=== PATIENT | male | born 1960 | race Hispanic/Latino ===

== ENCOUNTER 2017-11-21 18:53 | Inpatient (IN) | payer OTHER, SELFPAY ==
[2017-11-21 19:28] LABS: #Basophils 0.1 thou/uL (0.0-0.2); #Eosinphils 0.1 thou/uL (0.0-0.7); #Lymphocytes 1.7 thou/uL (1.20-3.40); #Monocytes 0.6 thou/uL (0.11-0.59); #Neutrophils 4.6 thou/uL (1.40-6.50); %Basophils 1.2 % (0.0-1.0); %Eosinophils 1.6 % (0.0-10.0); %Lymphocytes 24.2 % (21.0-51.0); %Monocytes 7.9 % (0.0-10.0); %Neutrophils 65.2 % (42.0-75.0); Hemoglobin 16.5 g/dL (14.0-18.0); Mean Corpuscular Hemoglobin 30.5 pg (27.0-31.0); Mean Corpuscular Volume 92.4 fl (80.0-94.0); Mean Platelet Volume 7.7 fL (7.4-10.4); Platelet Count 230 thou/uL (130-400); RBC Distribution Width 13.4 % (11.5-14.5)
[2017-11-21 19:53] LABS: CKMB 1.7 ng/mL (0-6.6); Troponin I 0.114 ng/mL (< 0.028)
[2017-11-21 19:55] LABS: ALT (SGPT) 22 U/L (8-55); AST (SGOT) 18 U/L (5-34); Alkaline Phosphatase 135 U/L (40-150); Anion Gap 13 mmol/L (10-20); BUN (Urea Nitrogen) 17 mg/dL (8.4-25.7); Bilirubin, Total 0.5 mg/dL (0.2-1.2); Calc. Creatinine Clearance 0 mL/min (70-130); Calcium 9.2 mg/dL (7.8-10.44); Carbon Dioxide 24 mmol/L (22-29); Chloride 99 mmol/L (98-107); Estimated GFR-MDRD 54; Globulin 4.2 g/dL (2.4-3.5); Glucose 395 mg/dL (70-105); Potassium 5.1 mmol/L (3.5-5.1); Protein, Total 8.2 g/dL (6.0-8.3); Sodium 131 mmol/L (136-145)
[2017-11-21] MEDS ORDERED: Digoxin 0.5 MG/2 ML AMP ONE (20:08)
[2017-11-21 20:12] LABS: INR-International Normal Ratio 1.6; PTT 34.2 SEC (22.9-36.1); Prothrombin Time 19.6 SEC (12.0-14.7)
[2017-11-21 20:13] LABS: CK (CPK) 67 U/L (30-200); Lipase 45 U/L (8-78)
[2017-11-21 20:14] LABS: D-Dimer Test Less than 0.27 *mcg/mL (0.27-0.43)
[2017-11-21] MEDS ORDERED: Magnesium 2 GM/NS 0.9% 100 ML 2 GM in Premix Bag 1 BAG IVPB ONE (20:15)
--- NOTE | 2017-11-21 20:19 | RAD ---
PORTABLE CHEST: 11/21/17 HISTORY: Atrial fibrillation. COMPARISON: 09/19/16 study. Heart size is markedly enlarged. The lungs are clear of any infiltrative process and there are no sig ns of failure. IMPRESSION: Cardiomegaly. POS: LUKAS
[2017-11-21] MEDS ORDERED: Diltiazem 125 MG in Sodium Chloride 0.9% 100 ML IVPB SCH (21:15)
[2017-11-21 22:59] LABS: Troponin I 0.111 ng/mL (< 0.028)
[2017-11-21] MEDS ORDERED: Dextrose 5% in Water 1,000 ML IV PRN (23:29)
[2017-11-21] MEDS ORDERED: Ondansetron ODT 4 MG TAB PO PRN (23:29)
[2017-11-21] MEDS ORDERED: Dextrose 50% Abboject 50 ML SYRINGE SLOW IVP PRN (23:29)
[2017-11-21] MEDS ORDERED: Famotidine 20 MG TAB PO PRN (23:29)
[2017-11-21] MEDS ORDERED: Acetaminophen 325 MG TAB PO PRN (23:29)
[2017-11-21 23:30] LABS: Bilirubin Negative (Negative); Blood, Urine Negative (Negative); Clarity CLEAR (Clear); Glucose, Urine (Dipstick) >=1000 mg/dL (Negative); Leukocyte Negative (Negative); Nitrite Negative (Negative); Protein, Urine (Dipstick) Negative (Neg-Trace); Specific Gravity, Urine 1.035 (1.002-1.036); Urobilinogen 0.2 mg/dL (0.2-1.0)
[2017-11-21 23:51] VITALS: BMI 34.5
[2017-11-21 23:51] LABS: Magnesium 2.4 mg/dL (1.6-2.6); Phosphorus 3.3 mg/dL (2.3-4.7)
[2017-11-22] MEDS: Sodium Chloride 0.9% 1,000 ML IV SCH ×2 (00:02→06:47)
[2017-11-22 02:01] LABS: Troponin I 0.121 ng/mL (< 0.028)
--- NOTE | 2017-11-22 05:05 | HP-2 ---
CODE STATUS: Full. PRIMARY CARE PHYSICIAN: [facility] ATTENDING: Dr. Deonna Devi RESIDENT: Dr. Matt Sumner CHIEF COMPLAINT: Shortness of breath. HISTORY OF PRESENT ILLNESS: This is a 57-year-old male who presents with a 1-day history of shortnes s of breath. He went to [facility] for a routine followup appointment and was found to be in atr ial fibrillation. At that time, he was sent to the ED for further evaluation. The patient denies an y chest pain, any nausea, vomiting, diarrhea, lightheadedness or any falls during this time. The pat ient states he overall feels very well. He has been trying to lose a little bit of weight for his di abetes, but he has only been successful in losing roughly 5 pounds. He states that he has not missed any medications during this time and he is compliant with all of his medical treatment. No other co mplaints stated at this time. In the ER, he was given a diltiazem drip at 5 mg, digoxin 0.5 mg, mag sulfate and aspirin 324 mg and started on normal saline at 75 mL per hour. PAST MEDICAL HISTORY: CHF, diabetes mellitus type 2, hyperlipidemia, hypertension, COPD, atrial fibr illation, hyperthyroidism. PAST SURGICAL HISTORY: He had a cardiac catheterization in 2005. ALLERGIES: No known drug allergies. MEDICATIONS: 1. Warfarin 5 mg. 2. Diltiazem extended release 240 mg. 3. Methimazole 5 mg b.i.d. 4. Lasix 40 mg. 5. Lisinopril 10 mg. 6. Pantoprazole 40 mg. 7. Metformin 500mg. 8. Simvastatin 20 mg. FAMILY HISTORY: Noncontributory. SOCIAL HISTORY: The patient does have a [id number] smoking history, but he quit 20 years ago. No alcohol or drug use. REVIEW OF SYSTEMS: GENERAL: Denies fevers, chills, weight changes, night sweats. EYES: Denies vision changes or eye pain. ENT: Denies nasal congestion, rhinorrhea, or sore throat. RESPIRATORY: Denies cough or congestion. He does admit to shortness of breath. CARDIOVASCULAR: De nies chest pain. He does admit to palpitations. GASTROINTESTINAL: Denies nausea, vomiting, diarrhea, constipation. GENITOURINARY: Denies incontinence, dysuria. SKIN: Denies rashes or lesions. MUSCULOSKELETAL: Denies pain, tenderness, stiffness, swelling, arthritis in any joints. NEUROLOGIC: Denies weakness, numbness, syncope or seizure. PSYCHIATRIC: Denies anxiety or depression. PHYSICAL EXAMINATION: VITAL SIGNS: Blood pressure 109/80, pulse 113, respirations 19, temperature max 98.1, pulse oximetry 96% on room air, current weight is 91 kilos. GENERAL: He is alert and oriented x4. Appropriately interactive. EYES: PERRLA. Conjunctivae within normal limits. ENT: Tympanic membranes pearly ortez without bulging or erythema. Nasal mucosa and oropharynx within normal limits. The patient does wear upper and lower ridge dentures. NECK: Supple, no lymphadenopathy, no thyromegaly. CARDIOVASCULAR: Irregularly irregular rate and rhythm. No murmurs, no gallops. His radial and peda l pulses were present bilaterally. RESPIRATORY: Normal effort, no retractions. Lungs are clear to auscultation bilaterally. SKIN: Warm and dry. ABDOMEN: Soft, nontender to palpation. Bowel sounds present x4. He does have a small umbilical her desiree present that was reducible. No pain present with hernia. EXTREMITIES: No clubbing, cyanosis or edema. MUSCULOSKELETAL: Structure, tone, muscle strength and range of motion within normal limits. NEUROLOGIC: No focal neurologic deficits. Sensation within normal limits. Cranial nerves II-XII gr ossly intact. GCS was 15. PSYCHIATRIC: Psych was appropriate. LABORATORY DATA: White blood cell count 7.0, platelet count 230. Hemoglobin 16.5, hematocrit 49.9, MCV was 92.4, % neutrophils 65.2. CK was 67, CK-MB 1.7, troponin I 0.114. Sodium 131, potassium 5.1 , chloride 99, bicarbonate 24, BUN 17, creatinine 1.36, glucose 395, calcium 9.2, total protein is 8. 2, albumin 4.0, total bilirubin 0.5, AST was 18, ALT 22, alkaline phosphatase 135. D-dimer is less t rodriguez 0.27. PTT was 34.2. INR is 1.6, PT was 19.6. Lipase was 45. BNP was 340.6. TSH is 1.7. EKG showed atrial fibrillation with RVR. The chest x-ray showed cardiomegaly. ASSESSMENT AND PLAN: A 57-year-old male. 1. Atrial fibrillation with rapid ventricular response. He will be put on a diltiazem drip with tel e monitoring. We will continue his warfarin and will check an INR daily. We are going to check a ma gnesium, phosphorus and get a T3 and T4 as his TSH was normal. If his heart rate cannot be controlle d and his rhythm persists, we will consider a Cardiology consult at that time. 2. Hyperglycemia, diabetes mellitus type 2. We will give him insulin and Accu-Cheks. 3. Acute kidney injury. We will give him gentle IV fluids. Recheck with a BMP. 4. Elevated BNP. We will get a repeat an echo. His last echo was in 2013 that showed an ejection f raction of 35-40%. We will give Lasix as needed. 5. Elevated troponins were going to trend those. We will repeat an EKG if he becomes symptomatic. 6. Subtherapeutic INR. We will get daily checks and increase his dosage as appropriate. 7. Hyperthyroidism. We will continue his methimazole. We will check a T3-T4 to see if this is the etiology of his atrial fibrillation. 8. Hypertension. Continue his home meds. 9. Hyperlipidemia. Continue his home medications. 10. Congestive heart failure. We will continue his home medications and we will also discuss lambert paz his regimen as he is not on a beta brigid at this time. DISPOSITION/LENGTH OF HOSPITAL STAY: Telemetry, 2. Symptomatic medications will be provided. History and physical exam as well as management has been discussed with Dr. Devi.
[2017-11-22 05:11] LABS: INR-International Normal Ratio 1.6; PTT 34.6 SEC (22.9-36.1); Prothrombin Time 19.8 SEC (12.0-14.7)
[2017-11-22 05:24] LABS: Free T4 (Free Thyroxine) 0.84 ng/dL (0.70-1.48)
[2017-11-22 05:30] LABS: Anion Gap 14 mmol/L (10-20); BUN (Urea Nitrogen) 17 mg/dL (8.4-25.7); Calc. Creatinine Clearance 100 mL/min (70-130); Calcium 8.3 mg/dL (7.8-10.44); Carbon Dioxide 21 mmol/L (22-29); Chloride 103 mmol/L (98-107); Estimated GFR-MDRD 81; Glucose 415 mg/dL (70-105); Potassium 4.5 mmol/L (3.5-5.1); Sodium 133 mmol/L (136-145)
[2017-11-22] MEDS: HumaLOG 300 UNITS/3 ML VIAL SC PRN ×4 (05:46→21:05)
[2017-11-22 07:00] LABS: Hemoglobin A1c 14.5 % (4.0-6.0)
[2017-11-22] MEDS ORDERED: Lisinopril 10 MG TAB PO SCH ×2 (09:00→22:04)
--- NOTE | 2017-11-22 09:11 | PDOC.FM ---
- Subjective Subjective: No significant overnight events. Patient doing well this AM, but does report some fatigue. He denies any shortness of breath, chest pain, or palpitations. [facility] sees [facility]. He was sent over from clinic due to elevated HR and irregular heart rhythm. He denied any symptoms at that time. - Objective MAR Reviewed: Yes Vital Signs & Weight: Vital Signs (12 hours) Temp Pulse Resp BP BP Pulse Ox 11/22/17 05:14 97.7 F 64 12 131/99 H 96 11/21/17 23:15 98 F 100 16 153/82 H 95 Weight Weight 83.007 kg I&O: 11/21/17 11/22/17 11/23/17 06:59 06:59 06:59 Intake Total 360 Output Total 700 Balance -340 Result Diagrams: 11/21/17 19:19 11/22/17 04:45 EKG Reviewed by me: Yes Radiology Reviewed by me: Yes <Zulema Mccormack - Last Filed: 11/22/17 09:09> - Objective Vital Signs & Weight: Vital Signs (12 hours) Temp Pulse Resp BP BP Pulse Ox 11/22/17 08:00 97.4 F L 74 20 142/86 H 96 11/22/17 05:14 97.7 F 64 12 131/99 H 96 11/21/17 23:15 98 F 100 16 153/82 H 95 Weight Weight 83.007 kg I&O: 11/21/17 11/22/17 11/23/17 06:59 06:59 06:59 Intake Total 360 Output Total 700 Balance -340 Result Diagrams: 11/21/17 19:19 11/22/17 04:45 <Brian Manrique - Last Filed: 11/22/17 11:12> Phys Exam - Physical Examination Constitutional: NAD HEENT: moist MMs Neck: supple Respiratory: clear to auscultation bilateral Irregularly irregular rhythm Gastrointestinal: soft Small reducible umbilical hernia Musculoskeletal: no edema Neurological: non-focal, moves all 4 limbs Psychiatric: A&O x 3 Deviation from normal: Appeared fatigued Skin: cap refill <2 seconds <Zulema Mccormack - Last Filed: 11/22/17 09:09> Dx/Plan (1) Atrial fibrillation with RVR Code(s): I48.91 - UNSPECIFIED ATRIAL FIBRILLATION Status: Acute (2) Diabetes mellitus type II, uncontrolled Code(s): E11.65 - TYPE 2 DIABETES MELLITUS WITH HYPERGLYCEMIA Status: Acute (3) CHF (congestive heart failure) Code(s): I50.9 - HEART FAILURE, UNSPECIFIED Status: Chronic (4) Hyperlipidemia Code(s): E78.5 - HYPERLIPIDEMIA, UNSPECIFIED Status: Chronic (5) Hypertension Code(s): I10 - ESSENTIAL (PRIMARY) HYPERTENSION Status: Chronic - Plan Plan: 1. A-fib with RVR - Started on dilt gtt in ER which was d/c'd at 05:00 this AM since HR in 60's - Patient has history of a-fib, but has not tolerated BB's in the past - According to patient, he has never been on anti-arrhythmic like amiodarone - HR in 60's without rate control medication - Patient on anticoagulation; warfarin - whole tablet MF, 1/2 tablet all other days - INR 1.6; increase warfarin dose 2. CHF - On lisinopril - Does not tolerate BB - Fluid restriction - HH diet 3. Diabetes mellitus Type II - HgA1c 14.5, up from 10 a few months ago - On metformin and glyburide (unknown dose) - Needs to be on insulin; will need to have this added outpatient 4. Elevated troponins - Continues to uptrend - Will recheck troponin this AM - Likely due to demand ischemia 5. HTN - Continue home medications 6. HLD - Continue zana emedications 7. Hyperthyroidism - Continue home medications Dispo: Stable. Monitor today. Consider discharge home tomorrow. Adjust warfarin dose. <Zulema Mccormack - Last Filed: 11/22/17 09:09> Attending Addendum - Attending Addendum I personally evaluated the patient and discussed the management with Dr. Mccormack. I agree with the History, Examination, Assessment and Plan documented above with any addition or exceptions noted below. Patient feels well. No complaints of shortness of breath or palpitations. He has been turned off Dilt drip. Will resume his home Dilt dosage and escalate as needed to maintain normal rate control. WIll need to increase warfarin therapy after med rec to get INR therapeutic. His diabetes is uncontrolled, will work to get under better control with medical therapy and likely initiate insulin therapy as outpatient with his PCP. <Brian Manrique - Last Filed: 11/22/17 11:12>
[2017-11-22] MEDS: Methimazole 5 MG TAB PO SCH (09:52)
[2017-11-22] MEDS: Furosemide 40 MG TAB PO SCH (09:53)
[2017-11-22] MEDS: metFORMIN 500 MG TAB PO SCH ×2 (09:53→18:08)
[2017-11-22 10:10] LABS: CKMB 1.2 ng/mL (0-6.6); Troponin I 0.109 ng/mL (< 0.028)
[2017-11-22] MEDS ORDERED: Warfarin Sodium 5 MG TAB PO SCH (17:00)
--- NOTE | 2017-11-22 18:31 | CON ---
DATE OF CONSULTATION: 11/22/2017 REASON FOR CONSULTATION: Bradycardia. PRIMARY ORGAN TUNER ELECTRONIC: Stef Delacruz M.D. HISTORY OF PRESENT ILLNESS: Mr. Franco is a very pleasant 57-year-old gentleman, Estonian speaking mostly, who is a patient of Dr. Delacruz, comes to the hospital for palpitations. He was found to be in atrial fibrillation and RVR. He has chronic atrial fibrillation. His heart rate was in the 130s, so he was started on diltiazem drip. He was also given digoxin 0.5, mag sulfate, and started on normal saline thought that he may have been a little bit volume down. He started to get better rate controlled and since yesterday, he had episodes of 3.5-second pauses, heart rate is down to the upper 30s and low 40s, but asymptomatic. He is chronically on Coumadin for stroke prophylaxis. He has a history of nonischemic cardiomyopathy. The last echocardiogram was in 2014 and it showed an EF of 35-40%, so no AICD was placed. He has not really had a repeat evaluation. Since then, he has seen Dr. Delacruz in the office back in 01/2015 and his EF was about 20-25%. He was in atrial fibrillation at that time. However, is a little bit better in the hospital. He has not followed up ever since. PAST MEDICAL HISTORY: 1. Nonischemic cardiomyopathy. 2. Type 2 diabetes. 3. Hyperlipidemia. 4. Hypertension. 5. COPD. 6. Chronic atrial fibrillation. 7. Hypothyroidism. PAST SURGICAL HISTORY: Cardiac catheterization in 2005 which showed no significant coronary artery disease. OUTPATIENT MEDICATIONS: 1. Warfarin. 2. Diltiazem 240 mg a day. 3. Methimazole 5 mg b.i.d. 4. Lasix 40 mg daily. 5. Lisinopril 10 mg. 6. Pantoprazole 40 mg. 7. Metformin 500 mg b.i.d. 8. Simvastatin 20 mg at bedtime. ALLERGIES: No known drug allergies. SOCIAL HISTORY: A [id number] smoking history, but quit 20 years ago. No alcohol or drug use. FAMILY HISTORY: Noncontributory. REVIEW OF SYSTEMS: Twelve-point review of systems was done, is otherwise negative unless stated in history of present illness. PHYSICAL EXAMINATION: VITAL SIGNS: Temperature 97.5, pulse 67, respiration rate 18, satting 98% on room air. Blood pressure 120/93. GENERAL: Awake, alert, oriented x3, in no distress. HEENT: Normocephalic and atraumatic. NECK: Supple. LUNGS: Clear. CARDIOVASCULAR: S1 and S2. No S3 or S4. There is very soft systolic murmur grade I in right upper sternal border. ABDOMEN: Soft, positive bowel sounds. EXTREMITIES: Trace edema. SKIN: Warm and dry. LABORATORY WORK: Reviewed. White count of 7.0, hemoglobin of 16, hematocrit 49 , platelet count 230. Coags, INR was 1.6 today. Chemistry with a sodium of133 , potassium 4.5, hemoglobin A1c was 14.5. Troponin was 0.1, 0.1, and 0.1 three times. Potassium has been replaced at 4.5. UA showed 1000 glucose, but otherwise negative. Echocardiogram was reviewed today, showed an EF of 30-35% atrial fibrillation during study, left atrium severely dilated with moderate TR. ASSESSMENT: 1. Atrial fibrillation and rapid ventricular response. 2. Bradycardia, possibly tachybrady syndrome. 3. Dilated nonischemic cardiomyopathy, EF down to 30-35%. PLAN: 1. He has class I indication for an AICD at this time with his LV dysfunction. We will call electrophysiology to see if he would be a candidate for an AICD for prevention of sudden cardiac as well as future episodes of bradycardia as he may have some component of tachybrady syndrome with his chronic atrial fibrillation. Will hold Warfarin and check INR tomorrow. NPO past midnight. 2. For his dilated cardiomyopathy, he needs to continue on his medications. For now, we do not have much space as far as up titration of many medications for heart failure given his borderline low blood pressure. 3. Dr. Delacruz, his primary Cardiology will follow up in the morning. Thank you for letting us participate in the care of your patient. MADONNA
[2017-11-22] MEDS: Atorvastatin Calcium 10 MG TAB PO SCH (21:05)
[2017-11-23 05:26] LABS: INR-International Normal Ratio 1.5
--- NOTE | 2017-11-23 06:56 | PDOC.FM ---
- Subjective Subjective: Patient doing well this AM. No significant overnight events. Patient denies chest pain or shortness of breath. He did have a 5 pound weight gain since yesterday, but does not appear to be fluid overloaded. Patient has talked with cardiology and agrees to AICD placement. Awaiting recs from Dr. Lester. - Objective MAR Reviewed: Yes Vital Signs & Weight: Vital Signs (12 hours) Temp Pulse Resp BP BP Pulse Ox 11/23/17 04:00 98.1 F 65 14 132/74 96 11/22/17 19:35 97.5 F L 57 L 18 116/72 98 Weight Weight 89.222 kg I&O: 11/21/17 11/22/17 11/23/17 06:59 06:59 06:59 Intake Total 360 1660 Output Total 700 1500 Balance -340 160 Result Diagrams: 11/21/17 19:19 11/22/17 04:45 EKG Reviewed by me: Yes Radiology Reviewed by me: Yes <Zulema Mccormack - Last Filed: 11/23/17 08:47> - Objective Vital Signs & Weight: Vital Signs (12 hours) Temp Pulse Resp BP Pulse Ox 11/23/17 07:40 96.5 F L 52 L 18 129/83 97 11/23/17 04:00 98.1 F 65 14 132/74 96 Weight Weight 89.222 kg I&O: 11/22/17 11/23/17 11/24/17 06:59 06:59 06:59 Intake Total 360 1660 Output Total 700 1500 Balance -340 160 Result Diagrams: 11/21/17 19:19 11/22/17 04:45 <Brian Manrique - Last Filed: 11/23/17 10:52> Phys Exam - Physical Examination Constitutional: NAD HEENT: moist MMs Neck: supple Respiratory: clear to auscultation bilateral A-fib Gastrointestinal: soft, positive bowel sounds Musculoskeletal: no edema Neurological: non-focal, moves all 4 limbs Psychiatric: A&O x 3 Skin: no rash, cap refill <2 seconds <Zulema Mccormack - Last Filed: 11/23/17 08:47> Dx/Plan (1) Atrial fibrillation with RVR Code(s): I48.91 - UNSPECIFIED ATRIAL FIBRILLATION Status: Acute (2) Diabetes mellitus type II, uncontrolled Code(s): E11.65 - TYPE 2 DIABETES MELLITUS WITH HYPERGLYCEMIA Status: Acute (3) CHF (congestive heart failure) Code(s): I50.9 - HEART FAILURE, UNSPECIFIED Status: Chronic (4) Hyperlipidemia Code(s): E78.5 - HYPERLIPIDEMIA, UNSPECIFIED Status: Chronic (5) Hypertension Code(s): I10 - ESSENTIAL (PRIMARY) HYPERTENSION Status: Chronic - Plan Plan: 1. A-fib with RVR - Started on dilt gtt in ER which was d/c'd at 05:00 this AM since HR in 60's - Patient has history of a-fib, but has not tolerated BB's in the past. Currently on CCB - According to patient, he has never been on anti-arrhythmic like amiodarone - Patient on anticoagulation; warfarin 5 mg - whole tablet MF, 1/2 tablet all other days - INR 1.5 this AM; warfarin held per cardiology - Cards consulted; appreciate recs - EP consulted; appreciate recs - Possible AICD placement during hospitalization - Possibly tachybrady syndrome as patients heart rate keeps dropping into 30's 2. CHF - On lisinopril - Does not tolerate BB - Fluid restriction - HH diet - Echo showed EF 30-35% which is decline from a few years ago - Qualifies for AICD; EP consulted, appreciate recs 3. Diabetes mellitus Type II - HgA1c 14.5, up from 10 a few months ago - On metformin and glyburide - Needs to be on insulin; will need to have this added outpatient for proper titration 4. Elevated troponins - Downtrended - Likely due to demand ischemia 5. HTN - Continue home medications 6. HLD - Continue home medications 7. Hyperthyroidism - Continue home medications Dispo: Stable. Will follow cards and EP recs. <Zulema Mccormack - Last Filed: 11/23/17 08:47> Attending Addendum - Attending Addendum I personally evaluated the patient and discussed the management with Dr. Mccormack. I agree with the History, Examination, Assessment and Plan documented above with any addition or exceptions noted below. Patient feeling well today, but had some bradycardia overnight, concern for tachy/lupe given his initial presentation. EP and Cardiology on board, and he is going for some intervention this morning. Further mgmt per Cardiology recs. INR 1.5 today, but warfarin held in prep for procedure today. <Brian Manrique - Last Filed: 11/23/17 10:52>
[2017-11-23] MEDS ORDERED: CEFAZOLIN/Water 2 GM/20 ML SYRINGE ONE (09:48)
[2017-11-23] MEDS ORDERED: Ondansetron HCl/PF 4 MG/2 ML Vial ONE (09:57)
[2017-11-23] MEDS ORDERED: Fentanyl 100 MCG/2 ML VIAL ONE (09:59)
[2017-11-23] MEDS ORDERED: Midazolam HCl 2 mg/2 ml Vial ONE (09:59)
[2017-11-23] MEDS ORDERED: Promethazine HCl 25 MG/ML VIAL SLOW IVP PRN (11:24)
[2017-11-23] MEDS ORDERED: Ondansetron HCl/PF 4 MG/2 ML Vial IVP PRN ×2 (11:24→12:21)
[2017-11-23] MEDS ORDERED: Promethazine HCl 25 MG/ML VIAL IM PRN (11:24)
[2017-11-23] MEDS: glipiZIDE 5 MG TAB PO SCH ×2 (11:27→18:10)
[2017-11-23] MEDS: metFORMIN 500 MG TAB PO SCH ×2 (11:27→18:10)
[2017-11-23] MEDS ORDERED: diphenhydrAMINE 25 MG CAP PO PRN (12:21)
[2017-11-23] MEDS ORDERED: Silver Sulfadiazine 1% Cream 50 GM JAR TOP PRN (12:21)
[2017-11-23] MEDS ORDERED: Mag-Al 1200 mg/1200 mg/30 ML UDCUP PO PRN (12:21)
[2017-11-23] MEDS ORDERED: Bisacodyl 10 MG SUPP PR PRN (12:21)
[2017-11-23] MEDS ORDERED: traMADol HCl 50 MG TAB PO PRN (12:21)
[2017-11-23] MEDS ORDERED: Temazepam 15 MG CAP PO PRN (12:21)
[2017-11-23] MEDS ORDERED: Bisacodyl 5 MG TAB PO PRN (12:21)
[2017-11-23] MEDS ORDERED: Nitroglycerin 0.4 MG TAB (25 Tab Bottle) SL PRN (12:21)
[2017-11-23] MEDS: Sodium Chloride 0.9% 1,000 ML IV SCH ×2 (13:07→21:50)
[2017-11-23] MEDS: HumaLOG 300 UNITS/3 ML VIAL SC PRN ×3 (13:07→21:51)
[2017-11-23] MEDS: Lisinopril 2.5 MG TAB PO SCH (13:08)
[2017-11-23] MEDS: Methimazole 5 MG TAB PO SCH (13:09)
[2017-11-23] MEDS: Furosemide 40 MG TAB PO SCH (13:09)
[2017-11-23] MEDS: Acetaminophen/Codeine 30-300mg Tablet PO PRN ×2 (16:39→21:50)
[2017-11-23] MEDS: Cephalexin 250 MG CAP PO SCH (18:11)
--- NOTE | 2017-11-23 18:32 | PRG ---
DATE OF SERVICE: 11/23/2017 SUBJECTIVE: Mr. Franco recently presented with atrial fibrillation with RVR and heart failure. He rec ently underwent ICD placement. From a cardiovascular standpoint, he is doing well. His heart rate h as increased. He is currently on Cardizem. OBJECTIVE: VITAL SIGNS: Blood pressure 114/86, pulse 94. LUNGS: Clear to auscultation. HEART: Irregularly irregular. ABDOMEN: Soft, nontender, and nondistended. EXTREMITIES: No edema. IMPRESSION: 1. Acute systolic heart failure. 2. Atrial fibrillation. RECOMMENDATIONS: 1. Discontinue Cardizem and place on Coreg. 2. Discontinue IV fluids. 3. Continue lisinopril in addition to Coumadin.
--- NOTE | 2017-11-23 18:38 | CON ---
DATE OF CONSULTATION: 11/23/2017 ELECTROPHYSIOLOGY CONSULTATION REPORT HISTORY: I am seeing Mr. Franco at our [facility] telemetry floor as an electrophysiology con sultant. His problems are: 1. Chronic systolic congestive heart failure with nonischemic cardiomyopathy. A. Moderate to severely reduced LVEF in the range of 35%-40% in 2014; then in 01/2015, LVEF was down to 20%-25%. B. Current echo from 11/21/2017 with LVEF 30%-35%, severely dilated left atrium, moderately enlarged right atrial size, moderate mitral regurgitation, moderate tricuspid regurgitation seen. 2. Chronic atrial fibrillation with warfarin anticoagulation. A. Anticoagulation currently is subtherapeutic. 3. Mild acute renal insufficiency, now resolved. 4. Coronary artery risk factors. A. Diabetes. B. Hyperlipidemia. C. Hypertension. 5. History of chronic obstructive pulmonary disease. 6. History of hyperthyroidism. ALLERGIES: None noted. MEDICATIONS AT HOME: Included warfarin, diltiazem CD 240 mg a day, methimazole 5 mg twice a day, [place] 40 mg daily, lisinopril 10 mg daily, pantoprazole 40 mg daily, metformin 500 mg daily, simvastatin 20 mg daily. SUBJECTIVE: Mr. Franco is here with symptoms of palpitations. He is also experiencing progressive dys pnea. In the ER, he was found to be in atrial fibrillation with rapid rates requiring IV diltiazem d rip and digoxin for rate control. Subsequently, he developed episodes of bradycardia with pauses. H is INR was subtherapeutic on admission. 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 Rest of 12-point system otherwise unremarkable. PAST MEDICAL HISTORY: As above. SOCIAL HISTORY: The patient has a 20 year pack smoking history, quit 10 years ago. Denies EtOH or d rug abuse. He is Occitan speaking only. FAMILY HISTORY: Noncontributory. OBJECTIVE DATA: VITAL SIGNS: Blood pressure is 129/83, heart rate 52, respirations 18, temperature 96.5 degrees Fahr enheit. GENERAL: He is alert and oriented man, in no apparent distress. NECK: Supple. Jugular veins not distended. CHEST: Coarse without crackles. CARDIAC: Heart sounds are irregularly irregular. S1 and S2 variable. No murmur or gallop. ABDOMEN: Benign. Bowel sounds positive. EXTREMITIES: Lower extremities without edema, clubbing, or cyanosis. DATABASE: The EKG is reviewed revealing initial atrial fibrillation, narrow complex QRS, elevated he art rates. Telemetry strips now reveals continued atrial fibrillation, good ventricular rate control , but occasional pauses of 3-4 seconds are seen. LABORATORY DATA: White count 7.0, hemoglobin 16.5, platelet count 230. INR is 1.5. The sodium is 1 33, potassium 4.5, BUN 17, and creatinine 0.95 currently. 450. The INR is again 1.5. The chest x-ray on admission reveals cardiomegaly, no acute pulmonary process. ASSESSMENT AND PLAN: 1. Mr. Franco is a 57-year-old man with history of diabetes, hypertension, progressive worsening LV d ysfunction with nonischemic cardiomyopathy. His LV dysfunction is chronic. His LVEF is less than 35 %. He has got occasional dizzy spells, but no full loss of consciousness, but has significant future risk of ventricular cardiac arrhythmia. Also he has atrial fibrillation with tachybrady syndrome an d could potentially benefit from pacing as well. The future restriction of the sinus rhythm could be attempted, possibly might require further AV brando blocking agents as well which will be difficult t o use without pacing. These issues were discussed with his who speaks fluent Pashto as well as the patient with translation. He understands the pros and cons of an ICD implant, risk of infection and bleeding were discussed. At this point, his INR was subtherapeutic, but not low. This will be reasonable to proceed with the device implant and then resume anticoagulation after. Risk of stroke, bleeding, lead dislodgement, pneumothorax, tamponade all discussed. He understands and would like t o proceed. We will schedule him in nearest available date. 2. Atrial fibrillation, chronic. Could consider LUIS ENRIQUE guided cardioversion before discharge, likely w e will need some profound rhythm medication for rate control. This could include amiodarone versus s otalol therapy. 3. Anticoagulation will need to resume afterwards. 4. Heart failure heart failure therapies as per Dr. Loo.
[2017-11-23] MEDS: Atorvastatin Calcium 10 MG TAB PO SCH (21:48)
[2017-11-23] MEDS: Carvedilol 6.25 MG TAB PO SCH (21:48)
[2017-11-24] MEDS: Cephalexin 250 MG CAP PO SCH ×4 (00:31→17:12)
[2017-11-24 05:50] LABS: Anion Gap 14 mmol/L (10-20); BUN (Urea Nitrogen) 18 mg/dL (8.4-25.7); Calc. Creatinine Clearance 116 mL/min (70-130); Calcium 8.6 mg/dL (7.8-10.44); Carbon Dioxide 25 mmol/L (22-29); Chloride 102 mmol/L (98-107); Estimated GFR-MDRD 87; Glucose 253 mg/dL (70-105); Potassium 4.2 mmol/L (3.5-5.1); Sodium 137 mmol/L (136-145)
--- NOTE | 2017-11-24 07:04 | PDOC.FM ---
- Subjective Subjective: POD #1 s/p ICD placement. Patient doing well, but having some surgical site tenderness and swelling. He otherwise denies chest pain, SOB, abdominal pain, leg swelling, palpitations. - Objective MAR Reviewed: Yes Vital Signs & Weight: Vital Signs (12 hours) Temp Pulse Resp BP Pulse Ox 11/24/17 04:00 97.8 F 67 14 112/73 94 L 11/23/17 20:00 97.5 F L 59 L 18 127/69 94 L Weight Weight 91.444 kg I&O: 11/23/1718 11/25/17 06:59 06:59 06:59 Intake Total 1660 536 Output Total 1500 1150 Balance 160 -614 Result Diagrams: 11/21/17 19:19 11/24/17 04:51 <Tahira Ling - Last Filed: 11/24/17 07:03> - Objective Vital Signs & Weight: Vital Signs (12 hours) Temp Pulse Resp BP BP Pulse Ox 11/24/17 08:59 132/81 11/24/17 07:24 97.5 F L 68 18 114/72 95 11/24/17 04:00 97.8 F 67 14 112/73 94 L Weight Weight 91.444 kg I&O: 11/23/17 11/24/17 11/25/17 06:59 06:59 06:59 Intake Total 1660 536 Output Total 1500 1150 Balance 160 -614 Result Diagrams: 11/21/17 19:19 11/24/17 04:51 <Brian Manrique - Last Filed: 11/24/17 10:07> Phys Exam - Physical Examination Constitutional: NAD HEENT: moist MMs Respiratory: no wheezing, no rales, no rhonchi, clear to auscultation bilateral Cardiovascular: no significant murmur irregularly irregular Gastrointestinal: soft, non-tender, no distention, positive bowel sounds Musculoskeletal: no edema, pulses present Neurological: non-focal, moves all 4 limbs Psychiatric: normal affect, A&O x 3 Deviation from normal: incision c/d/i some surrounding swelling and tenderness <Tahira Ling - Last Filed: 11/24/17 07:03> Dx/Plan (1) Atrial fibrillation with RVR Code(s): I48.91 - UNSPECIFIED ATRIAL FIBRILLATION Status: Resolved (2) Tachy-lupe syndrome Code(s): I49.5 - SICK SINUS SYNDROME Status: Acute (3) Diabetes mellitus type II, uncontrolled Code(s): E11.65 - TYPE 2 DIABETES MELLITUS WITH HYPERGLYCEMIA Status: Acute QualifierTitle: Diabetes mellitus complication status: without complication Diabetes mellitus retirement insulin use: without moth exterminator 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 Qualified Code(s): E11.65 - Type 2 diabetes mellitus with hyperglycemia (4) CHF (congestive heart failure) Code(s): I50.9 - HEART FAILURE, UNSPECIFIED Status: Chronic QualifierTitle: Congestive heart failure type: systolic Congestive heart failure chronicity: chronic Qualified Code(s): I50.22 - Chronic systolic ( congestive) heart failure (5) Hyperlipidemia Code(s): E78.5 - HYPERLIPIDEMIA, UNSPECIFIED Status: Chronic QualifierTitle: Hyperlipidemia type: unspecified Qualified Code(s): E78.5 - Hyperlipidemia, unspecified (6) Hypertension Code(s): I10 - ESSENTIAL (PRIMARY) HYPERTENSION Status: Chronic QualifierTitle: Hypertension type: essential hypertension Qualified Code( s): I10 - Essential (primary) hypertension - Plan Plan: 1. A-fib with RVR - Started on dilt gtt in ER which was d/c'd at 05:00 on 11/22 since HR in 60's - Patient has history of a-fib, but has not tolerated BB's in the past. Currently on CCB - According to patient, he has never been on anti-arrhythmic like amiodarone - Patient on anticoagulation; warfarin 5 mg - whole tablet MF, 1/2 tablet all other days - INR subtheraputic, continue to monitor - Cards consulted; appreciate recs - EP consulted; appreciate recs - POD#1 s/p AICD placement - Cards stopped diltiazem and started coreg 2. Tachy-lupe syndrome Patient's heart rate would continue to drop into the 30's - EP consulted, appreciate recs - POD # 1 s/p AICD placement - Pain controlled with tylenol # 3 - Keflex day 2 2. CHF - On lisinopril - Does not tolerate BB - Fluid restriction - HH diet - Echo showed EF 30-35% which is decline from a few years ago - Qualifies for AICD; EP consulted, appreciate recs - Coreg started per cardiology 3. Diabetes mellitus Type II - HgA1c 14.5, up from 10 a few months ago - On metformin and glyburide - Needs to be on insulin; will need to have this added outpatient for proper titration - Moderate SSI 4. Elevated troponins - Downtrended - Likely due to demand ischemia 5. HTN - Continue home medications 6. HLD - Continue home medications 7. Hyperthyroidism - Continue home medications Dispo: Stable. Will follow cards and EP recs. <Tahira Ling - Last Filed: 11/24/17 07:03> Attending Addendum - Attending Addendum I personally evaluated the patient and discussed the management with Dr. Ling. I agree with the History, Examination, Assessment and Plan documented above with any addition or exceptions noted below. Patient doing well, mildly sore after AICD placement. His HR is improved with paced rhythm and beta brigid therapy. Blood sugars high, will escalate therapy today. Further recs per cardiology and should be stable for discharge once they have completed their workup. <Brian Manrique - Last Filed: 11/24/17 10:07>
[2017-11-24 07:37] LABS: INR-International Normal Ratio 1.6
--- NOTE | 2017-11-24 07:46 | RAD ---
CHEST 1 VIEW: HISTORY: A 57-year-old male status post pacemaker. COMPARISON: 11/21/17. FINDINGS: A left-sided ICD has been placed. Minimal cardiomegaly. No confluent pneumonia or overt edema. No pneumothorax or pleural effusion. IMPRESSION: Stable-appearing chest. Left implantable cardioverter defibrillator placement without pneumothorax, pleural effusion, or other post procedure complication. POS: [facility]
[2017-11-24] MEDS: metFORMIN 500 MG TAB PO SCH ×2 (08:58→17:12)
[2017-11-24] MEDS: glipiZIDE 5 MG TAB PO SCH ×2 (08:58→17:12)
[2017-11-24] MEDS: Lisinopril 2.5 MG TAB PO SCH (08:58)
[2017-11-24] MEDS: Carvedilol 6.25 MG TAB PO SCH ×2 (08:59→20:26)
[2017-11-24] MEDS: Furosemide 40 MG TAB PO SCH (08:59)
[2017-11-24] MEDS: Methimazole 5 MG TAB PO SCH (08:59)
[2017-11-24] MEDS: Sodium Chloride 0.9% 1,000 ML IV SCH (09:02)
--- NOTE | 2017-11-24 12:10 | EKG ---
Test Reason : Blood Pressure : / mmHG Vent. Rate : 134 BPM Atrial Rate : 156 BPM P-R Int : 000 ms QRS Dur : 092 ms QT Int : 320 ms P-R-T Axes : 000 005 021 degrees QTc Int : 477 ms Atrial fibrillation with rapid ventricular response Abnormal ECG Confirmed by TEE CALDWELL, MIGUEL ([id number]), digital editor ZECHARIAH RAM ([id number]) on 11/24/2017 12:09:57 PM Referred By: Confirmed By:MIGUEL OLIVEIRA MD
[2017-11-24] MEDS: HumaLOG 300 UNITS/3 ML VIAL SC PRN ×2 (12:39→17:31)
[2017-11-24] MEDS ORDERED: Furosemide 40 MG/4 ML VIAL SLOW IVP SCH (16:30)
[2017-11-24] MEDS: Warfarin Sodium 2.5 MG TAB PO SCH (17:13)
[2017-11-24] MEDS ORDERED: Digoxin 0.5 MG/2 ML AMP SLOW IVP SCH (19:00)
[2017-11-24] MEDS: Atorvastatin Calcium 10 MG TAB PO SCH (20:26)
[2017-11-24] MEDS: Diltiazem HCl 125 MG, Admixture Fee 1 EACH in Sodium Chloride 0.9% 100 ML IVPB SCH (20:27)
[2017-11-25] MEDS: Cephalexin 250 MG CAP PO SCH ×4 (00:37→18:00)
--- NOTE | 2017-11-25 07:13 | PDOC.FM ---
- Subjective Subjective: The patient reports that his surgical site pain is minimal and only hurts when he moves around. Denies chest pain or abdominal pain or SOB. He is having regular BM's and denies N/V. Tolerating PO well. - Objective MAR Reviewed: Yes Vital Signs & Weight: Vital Signs (12 hours) Temp Pulse Resp BP BP Pulse Ox 11/25/17 04:00 97.9 F 60 16 114/74 98 11/24/17 20:26 146/77 H 11/24/17 20:00 97.8 F 112 H 18 145/80 H 97 11/24/17 19:55 74 Weight Weight 93.44 kg I&O: 11/24/17 11/25/17 11/26/17 06:59 06:59 06:59 Intake Total 536 1500 Output Total 1150 2500 Balance -614 -1000 Result Diagrams: 11/21/17 19:19 11/24/17 04:51 <Tahira Ling - Last Filed: 11/25/17 07:10> - Objective Vital Signs & Weight: Vital Signs (12 hours) Temp Pulse Resp BP BP Pulse Ox 11/25/17 08:00 96.5 F L 78 16 141/70 H 100 11/25/17 04:00 97.9 F 60 16 114/74 98 Weight Weight 93.44 kg I&O: 11/24/17 11/25/17 11/26/17 06:59 06:59 06:59 Intake Total 536 1500 Output Total 1150 2500 Balance -614 -1000 Result Diagrams: 11/21/17 19:19 11/24/17 04:51 <Brian Manrique - Last Filed: 11/25/17 09:57> Phys Exam - Physical Examination Constitutional: NAD HEENT: moist MMs Respiratory: no wheezing, no rales, no rhonchi, clear to auscultation bilateral Cardiovascular: no significant murmur, no rub irregularly irregular Gastrointestinal: soft, non-tender, no distention, positive bowel sounds Musculoskeletal: no edema, pulses present Neurological: non-focal, moves all 4 limbs Psychiatric: normal affect, A&O x 3 Skin: no rash <Tahira Ling - Last Filed: 11/25/17 07:10> Dx/Plan (1) Atrial fibrillation with RVR Code(s): I48.91 - UNSPECIFIED ATRIAL FIBRILLATION Status: Resolved (2) Tachy-lupe syndrome Code(s): I49.5 - SICK SINUS SYNDROME Status: Acute (3) Diabetes mellitus type II, uncontrolled Code(s): E11.65 - TYPE 2 DIABETES MELLITUS WITH HYPERGLYCEMIA Status: Acute QualifierTitle: Diabetes mellitus complication status: without complication Diabetes mellitus long-term insulin use: without long-term use Qualified Code(s): E11.65 - Type 2 diabetes mellitus with hyperglycemia (4) CHF (congestive heart failure) Code(s): I50.9 - HEART FAILURE, UNSPECIFIED Status: Chronic QualifierTitle: Congestive heart failure type: systolic Congestive heart failure chronicity: chronic Qualified Code(s): I50.22 - Chronic systolic ( congestive) heart failure (5) Hyperlipidemia Code(s): E78.5 - HYPERLIPIDEMIA, UNSPECIFIED Status: Chronic QualifierTitle: Hyperlipidemia type: unspecified Qualified Code(s): E78.5 - Hyperlipidemia, unspecified (6) Hypertension Code(s): I10 - ESSENTIAL (PRIMARY) HYPERTENSION Status: Chronic QualifierTitle: Hypertension type: essential hypertension Qualified Code( s): I10 - Essential (primary) hypertension - Plan Plan: 1. A-fib with RVR - Started on dilt gtt in ER which was d/c'd at 05:00 on 11/22 since HR in 60's - Patient has history of a-fib, but has not tolerated BB's in the past. Currently on CCB - According to patient, he has never been on anti-arrhythmic like amiodarone - Patient on anticoagulation; warfarin 5 mg - whole tablet MF, 1/2 tablet all other days - INR subtheraputic, continue to monitor - Cards consulted; appreciate recs - EP consulted; appreciate recs - POD#2 s/p AICD/pacemaker placement - Coreg - Diltiazem gtt started overnight last night due to HR up to 120's - HR is now in the 80's 2. Tachy-lupe syndrome Patient's heart rate would continue to drop into the 30's - EP consulted, appreciate recs - POD # 2 s/p AICD/pacemaker placement - Pain controlled with tylenol # 3 - Keflex day 3 2. CHF - On lisinopril - Did not tolerate BB - Fluid restriction - HH diet - Echo showed EF 30-35% which is decline from a few years ago - Qualifies for AICD; EP consulted, appreciate recs - Coreg started after pacemaker was placed 3. Diabetes mellitus Type II - HgA1c 14.5, up from 10 a few months ago - On metformin and glyburide - Needs to be on insulin; will need to have this added outpatient for proper titration - Moderate SSI 4. Elevated troponins - Downtrended - Likely due to demand ischemia 5. HTN - Continue home medications 6. HLD - Continue home medications 7. Hyperthyroidism - Continue home medications Dispo: Stable. Will follow cards and EP recs. <Tahira Ling - Last Filed: 11/25/17 07:10> Attending Addendum - Attending Addendum I personally evaluated the patient and discussed the management with Dr. Ling. I agree with the History, Examination, Assessment and Plan documented above with any addition or exceptions noted below. Patient without complaints, has mild pain at surgical site. He went back into RVR overnight and was placed on Dilt drip by cardiology. Await further cardiology recs regarding rate and rhythm control but otherwise no active issues. <Brian Manrique - Last Filed: 11/25/17 09:57>
[2017-11-25 08:04] LABS: INR-International Normal Ratio 1.3
[2017-11-25] MEDS: Lisinopril 2.5 MG TAB PO SCH (10:26)
[2017-11-25] MEDS: Furosemide 100 MG/10 ML VIAL SLOW IVP SCH ×2 (10:26→16:14)
[2017-11-25] MEDS: glipiZIDE 5 MG TAB PO SCH ×2 (10:28→16:14)
[2017-11-25] MEDS: Methimazole 5 MG TAB PO SCH (10:28)
[2017-11-25] MEDS: metFORMIN 500 MG TAB PO SCH ×2 (10:29→16:15)
[2017-11-25] MEDS: HumaLOG 300 UNITS/3 ML VIAL SC PRN ×3 (10:30→17:57)
[2017-11-25] MEDS ORDERED: Carvedilol 6.25 MG TAB PO SCH (12:00)
[2017-11-25] MEDS ORDERED: Enoxaparin Sodium 80 MG/0.8 ML SYRINGE SC SCH (12:15)
[2017-11-25] MEDS: Furosemide 40 MG TAB PO SCH (12:58)
[2017-11-25] MEDS: Carvedilol 6.25 MG TAB PO SCH ×2 (12:58→21:37)
[2017-11-25] MEDS: Warfarin Sodium 2.5 MG TAB PO SCH (16:15)
[2017-11-25] MEDS: Acetaminophen/Codeine 30-300mg Tablet PO PRN (17:56)
[2017-11-25] MEDS: Enoxaparin Sodium 80 MG/0.8 ML SYRINGE SC SCH (21:36)
[2017-11-25] MEDS: Atorvastatin Calcium 10 MG TAB PO SCH (21:38)
[2017-11-26] MEDS: Cephalexin 250 MG CAP PO SCH ×5 (00:29→22:44)
[2017-11-26] MEDS: Diltiazem HCl 125 MG, Admixture Fee 1 EACH in Sodium Chloride 0.9% 100 ML IVPB SCH (05:27)
[2017-11-26 05:36] LABS: Anion Gap 17 mmol/L (10-20); BUN (Urea Nitrogen) 18 mg/dL (8.4-25.7); Calc. Creatinine Clearance 105 mL/min (70-130); Calcium 9.6 mg/dL (7.8-10.44); Carbon Dioxide 21 mmol/L (22-29); Chloride 97 mmol/L (98-107); Estimated GFR-MDRD 79; Glucose 252 mg/dL (70-105); Potassium 4.5 mmol/L (3.5-5.1); Sodium 130 mmol/L (136-145)
[2017-11-26 05:57] LABS: INR-International Normal Ratio 1.2; Prothrombin Time 15.4 SEC (12.0-14.7)
--- NOTE | 2017-11-26 06:25 | PDOC.FM ---
- Subjective Subjective: Patient doing well this AM. No significant overnight events. One episode of tachycardia when patient go up last night, otherwise well controlled on dilt drip. Oral dilt added per cardiology. Will continue to follow cards recs. Patient denies any shortness of breath or chest pain. - Objective MAR Reviewed: Yes Vital Signs & Weight: Vital Signs (12 hours) Temp Pulse Resp BP BP Pulse Ox 11/26/17 04:00 97.8 F 77 18 129/72 98 11/25/17 21:37 126/70 11/25/17 20:00 97.7 F 68 20 126/76 97 Weight Weight 89.222 kg I&O: 11/24/17 11/25/17 11/26/17 06:59 06:59 06:59 Intake Total 536 1500 789.7 Output Total 1150 2500 2049 Balance -612 -1000 1260.3 Result Diagrams: 11/21/17 19:19 11/26/17 04:36 EKG Reviewed by me: Yes Radiology Reviewed by me: Yes <Zulema Mccormack - Last Filed: 11/26/17 08:57> - Objective Vital Signs & Weight: Vital Signs (12 hours) Temp Pulse Resp BP BP Pulse Ox 11/26/17 08:46 81 126/70 11/26/17 08:00 98.3 F 81 18 131/69 98 11/26/17 04:00 97.8 F 77 18 129/72 98 Weight Weight 89.222 kg I&O: 11/25/17 11/26/17 11/27/17 06:59 06:59 06:59 Intake Total 1500 789.7 Output Total 2500 2049 Balance -1000 1260.3 Result Diagrams: 11/21/17 19:19 11/26/17 04:36 <Blake Santa - Last Filed: 11/26/17 11:33> Phys Exam - Physical Examination Constitutional: NAD HEENT: moist MMs Neck: supple Respiratory: no wheezing, clear to auscultation bilateral Cardiovascular: RRR, no significant murmur Gastrointestinal: soft, no distention Musculoskeletal: no edema, pulses present Neurological: non-focal, moves all 4 limbs Psychiatric: A&O x 3 Skin: cap refill <2 seconds Deviation from normal: areas of bruising around pacemaker <Zulema Mccormack - Last Filed: 11/26/17 08:57> Dx/Plan (1) Atrial fibrillation with RVR Code(s): I48.91 - UNSPECIFIED ATRIAL FIBRILLATION Status: Acute (2) Diabetes mellitus type II, uncontrolled Code(s): E11.65 - TYPE 2 DIABETES MELLITUS WITH HYPERGLYCEMIA Status: Chronic QualifierTitle: Diabetes mellitus complication status: without complication 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: without usp use Qualified Code(s): E11.65 - Type 2 diabetes mellitus with hyperglycemia (3) CHF (congestive heart failure) Code(s): I50.9 - HEART FAILURE, UNSPECIFIED Status: Chronic QualifierTitle: Congestive heart failure type: systolic Congestive heart failure chronicity: chronic Qualified Code(s): I50.22 - Chronic systolic ( congestive) heart failure (4) Hyperlipidemia Code(s): E78.5 - HYPERLIPIDEMIA, UNSPECIFIED Status: Chronic QualifierTitle: Hyperlipidemia type: unspecified Qualified Code(s): E78.5 - Hyperlipidemia, unspecified (5) Hypertension Code(s): I10 - ESSENTIAL (PRIMARY) HYPERTENSION Status: Chronic QualifierTitle: Hypertension type: essential hypertension Qualified Code( s): I10 - Essential (primary) hypertension - Plan Plan: 1. A-fib with RVR - Started on dilt gtt in ER which was d/c'd at 05:00 on 11/22 since HR in 60's - Restarted on diltiazem drip 11/24/2016; BB dose increased - Cards added oral dilt 180 mg daily - Per EP, consider adding sotalol or amiodarone; consider LUIS ENRIQUE with cardioversion - Patient on anticoagulation; warfarin 5 mg - whole tablet MF, 1/2 tablet all other days - INR subtheraputic, continue to monitor and adjust dose as necessary; lovenox added until INR more therapeutic - Cards consulted; appreciate recs - EP consulted; appreciate recs - POD#3 s/p AICD/pacemaker placement - Coreg dose increased per cards - HR this AM 77 2. Tachy-lupe syndrome - EP consulted, appreciate recs - POD # 3 s/p AICD/pacemaker placement - Pain controlled with tylenol # 3 - Keflex day 4 2. CHF - On lisinopril - s/p pacemaker and AICD on BB - Fluid restriction - HH diet - Echo showed EF 30-35% which is decline from a few years ago - Appreciate EP recs - Coreg started after pacemaker was placed 3. Diabetes mellitus Type II - HgA1c 14.5, up from 10 a few months ago - On metformin and glyburide - Needs to be on insulin; will need to have this added outpatient for proper titration - Moderate SSI; requiring 15-22 units per day 4. Elevated troponins - Downtrended - Likely due to demand ischemia 5. HTN - Continue home medications 6. HLD - Continue home medications 7. Hyperthyroidism - Continue home medications Dispo: Stable. Will follow cards and EP recs. <Zulema Mccormack - Last Filed: 11/26/17 08:57> Attending Addendum - Attending Addendum I personally evaluated the patient and discussed the management with Dr. Mccormack I agree with the History, Examination, Assessment and Plan documented above with any addition or exceptions noted below. The plan for today is to await cards recs, he has been started on oral dilt but is still on the dilt gtt @ 5 which will need to be discontinued at some point soon. We will also start levemir today as he has been requiring insuling sliding scale supplementation with almost every check. INR is also subtherapeutic. We increased coumadin dose today, continue Th lovenox until INR is rising. <Blake Santa - Last Filed: 11/26/17 11:33>
[2017-11-26] MEDS: Methimazole 5 MG TAB PO SCH (08:46)
[2017-11-26] MEDS: Carvedilol 6.25 MG TAB PO SCH ×2 (08:46→22:22)
[2017-11-26] MEDS: Lisinopril 2.5 MG TAB PO SCH (08:46)
[2017-11-26] MEDS: metFORMIN 500 MG TAB PO SCH ×2 (08:46→18:01)
[2017-11-26] MEDS: glipiZIDE 5 MG TAB PO SCH ×2 (08:46→18:01)
[2017-11-26] MEDS: Enoxaparin Sodium 80 MG/0.8 ML SYRINGE SC SCH (08:47)
--- NOTE | 2017-11-26 08:51 | PRG ---
DATE OF SERVICE: 11/26/2017 Mr. Franco feels stable. He has no current symptoms. He did get up to the bathroom last evening at 4 o'clock in the morning and did have increased heart rate in the 127-130s. Otherwise his heart rate h as been stable. He is currently on carvedilol at 12.5 b.i.d. PHYSICAL EXAMINATION: VITAL SIGNS: Blood pressure 121/72, pulse 70, temperature 97.8. LUNGS: Clear to auscultation. HEART: Irregularly irregular. ABDOMEN: Soft, nontender, nondistended. EXTREMITIES: No edema. IMPRESSION: 1. Acute on chronic systolic heart failure. 2. Atrial fibrillation. RECOMMENDATIONS: Mr. Franco's heart rate continues to be difficult to control. At this point would ad d Cardizem at 180 mg x1. This may have less effect on his blood pressure. I am concerned about incr eased heart rate with little ambulation. If he continues to have issues I would consider AV brando ab lation. With AV brando ablation his heart failure may worsen so will use as last resort.
--- NOTE | 2017-11-26 10:03 | PDOC.CTH ---
<Teresa Lindquist - Last Filed: 11/26/17 14:44> Cardiology Progress Note - Subjective EP progress note Patient resting in bed without complaint. Has been up walking in room regularly but does have heart racing and slight shortness of breath/rapid breathing with these episodes. Heart racing only occurs with activity, usually just walking from bed to bathroom. No dizziness or passing out. No other complaints. - ROS shortness of breath - Objective Vital Signs Temp Pulse Resp BP BP Pulse Ox 11/26/17 08:46 81 126/70 11/26/17 08:00 98.3 F 81 18 131/69 98 11/26/17 04:00 97.8 F 77 18 129/72 98 Weight 196 lb 11.2 oz 11/25/17 11/26/17 11/27/17 06:59 06:59 06:59 Intake Total 1500 789.7 Output Total 2500 0 Balance -1000 -1260.3 - Physical Examination General/Neuro: alert & oriented x3, NAD Neck: carotid US brisk, no JVD present Lungs: CTA, unlabored respirations Heart: PMI normal, other: (A Fib) Abdomen: no HSM, NT/ND Extremities: other: (BLE without edema) Other PE findings: hematoma at ICD site- outlined/ dated - Telemetry Telemetry Rhythm: A Fib - Labs Result Diagrams: 11/26/17 11:55 11/26/17 11:55 Troponin/CKMB CK-MB (CK-2) 1.2 ng/mL (0-6.6) 11/22/17 09:37 Troponin I 0.109 ng/mL (< 0.028) H 11/22/17 09:37 - Assessment/Plan 1. A Fib RVR- Persistent A Fib. Remains on Diltiazem gtt at 5mg/hr in additional to PO diltiazem dose today. Rates well controlled at rest but has had three RVR episodes today with rates in the 130-150 range which correlate with times pt was OOB to bathroom. Restoring sinus rhythm is a remote chance but if this is something sought after could initiate sotalol and attempt CV with LUIS ENRIQUE prior. 2. Anticoagulation- INRs remain subtherapeutic on warfarin. Also on lovenox until therapeutic. 3. Cardiomyopathy & Chronic systolic heart failure with reduced EF-ICD implant on 11/23/17 4. Tachy/Kel-3.31 second pause on 11/22/17, inclusion of ICD. 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 Hematoma at ICD implant- initial hematoma has worsened. Extends below, slightly above, and laterally into axilla. Tender. Pressure dressing applied and to remain in place for 24 hours. <Toney Lester - Last Filed: 11/26/17 18:28> Cardiology Progress Note - Objective Vital Signs Temp Pulse Resp BP BP Pulse Ox 11/26/17 08:46 81 126/70 11/26/17 08:00 98.3 F 81 18 131/69 98 Weight 196 lb 11.2 oz 11/25/17 11/26/17 11/27/17 06:59 06:59 06:59 Intake Total 1500 789.7 Output Total 2500 2050 Balance -1000 -1260.3 - Labs Result Diagrams: 11/26/17 11:55 11/26/17 11:55 Troponin/CKMB CK-MB (CK-2) 1.2 ng/mL (0-6.6) 11/22/17 09:37 Troponin I 0.109 ng/mL (< 0.028) H 11/22/17 09:37 Attending Addendum - Attending Addendum I personally evaluated the patient and discussed the management with Ms Lindquist. 1. A Fib RVR- Persistent A Fib. Remains on Diltiazem gtt at 5mg/hr in additional to PO diltiazem dose today. Rates well controlled at rest but has had three RVR episodes today with rates in the 130-150 range which correlate with times pt was OOB to bathroom. Restoring sinus rhythm is a remote chance but if this is something sought after could initiate sotalol and attempt CV with LUIS ENRIQUE prior. 2. Anticoagulation- INRs remain subtherapeutic on warfarin. Will stop lovenox hence hematoma. 3. Cardiomyopathy & Chronic systolic heart failure with reduced EF-ICD implant on 11/23/17 4. Tachy/Kel-3.31 second pause on 11/22/17, inclusion of ICD. 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 Hematoma at ICD implant- initial hematoma has worsened. Extends below, slightly above, and laterally into axilla. Tender. Pressure dressing applied and to remain in place for 24 hours.
[2017-11-26] MEDS: Furosemide 100 MG/10 ML VIAL SLOW IVP SCH ×2 (10:51→15:31)
[2017-11-26 12:19] LABS: Hemoglobin 16.6 g/dL (14.0-18.0); Platelet Count 231 thou/uL (130-400)
[2017-11-26] MEDS: HumaLOG 300 UNITS/3 ML VIAL SC PRN ×3 (13:09→22:23)
[2017-11-26] MEDS ORDERED: Warfarin Sodium 5 MG TAB PO SCH (17:00)
[2017-11-26] MEDS: Acetaminophen 325 MG TAB PO PRN (20:09)
[2017-11-26] MEDS ORDERED: Insulin Detemir 100 UNITS/ML 5 UNITS in Pre-Filled Syringe SC SCH (21:00)
[2017-11-26] MEDS: Atorvastatin Calcium 10 MG TAB PO SCH (22:21)
[2017-11-27] MEDS: Diltiazem HCl 125 MG, Admixture Fee 1 EACH in Sodium Chloride 0.9% 100 ML IVPB SCH (03:16)
[2017-11-27 05:28] LABS: INR-International Normal Ratio 1.2; Prothrombin Time 15.1 SEC (12.0-14.7)
[2017-11-27] MEDS: Cephalexin 250 MG CAP PO SCH ×4 (05:30→23:36)
[2017-11-27] MEDS: Acetaminophen/Codeine 30-300mg Tablet PO PRN ×2 (05:31→21:40)
--- NOTE | 2017-11-27 07:26 | PDOC.FM ---
- Subjective Subjective: Patient doing well this AM. No significant overnight events. He did request pain medication for hematoma that resulted from AICD placement. Patient denies any palpitations, chest pain, or shortness of breath. - Objective MAR Reviewed: Yes Vital Signs & Weight: Vital Signs (12 hours) Temp Pulse Resp BP BP Pulse Ox 11/27/17 04:00 97.3 F L 65 17 108/66 96 11/27/17 00:00 60 18 130/61 11/26/17 20:00 98.5 F 67 18 11/26/17 19:30 98.5 F 67 18 111/73 98 Weight Weight 87.226 kg I&O: 11/26/17 11/27/17 11/28/17 06:59 06:59 06:59 Intake Total 789.7 1110 Output Total 0 2200 Balance -1260.3 -1090 Result Diagrams: 11/26/17 11:55 11/26/17 11:55 EKG Reviewed by me: Yes Radiology Reviewed by me: Yes <Zulema Mccormack - Last Filed: 11/27/17 08:25> - Objective Vital Signs & Weight: Weight Weight 86.818 kg Result Diagrams: 11/28/17 10:44 11/28/17 10:44 <Blake Santa - Last Filed: 01/13/18 15:26> Phys Exam - Physical Examination Constitutional: NAD HEENT: moist MMs Neck: supple Respiratory: clear to auscultation bilateral Cardiovascular: no significant murmur A-fib Gastrointestinal: soft, positive bowel sounds Musculoskeletal: no edema, pulses present Neurological: non-focal, moves all 4 limbs Psychiatric: A&O x 3 Skin: no rash, cap refill <2 seconds <Zulema Mccormack - Last Filed: 11/27/17 08:25> Dx/Plan (1) Atrial fibrillation with RVR Code(s): I48.91 - UNSPECIFIED ATRIAL FIBRILLATION Status: Acute (2) Diabetes mellitus type II, uncontrolled Code(s): E11.65 - TYPE 2 DIABETES MELLITUS WITH HYPERGLYCEMIA Status: Chronic QualifierTitle: Diabetes mellitus care home insulin use: without care home use Diabetes mellitus complication status: without complication Qualified Code(s): - (3) CHF (congestive heart failure) Code(s): I50.9 - HEART FAILURE, UNSPECIFIED Status: Chronic QualifierTitle: Qualified Code(s): I50.23 - Acute on chronic systolic ( congestive) heart failure (4) Hyperlipidemia Code(s): E78.5 - HYPERLIPIDEMIA, UNSPECIFIED Status: Chronic QualifierTitle: Hyperlipidemia type: unspecified Qualified Code(s): E78.5 - Hyperlipidemia, unspecified (5) Hypertension Code(s): I10 - ESSENTIAL (PRIMARY) HYPERTENSION Status: Chronic QualifierTitle: Hypertension type: essential hypertension Qualified Code( s): I10 - Essential (primary) hypertension - Plan Plan: 1. A-fib with RVR - Restarted on diltiazem drip 11/24/2016; BB dose increased - Cards added oral dilt 180 mg daily - Per EP, consider adding sotalol or amiodarone; consider LUIS ENRIQUE with cardioversion - Patient on anticoagulation; warfarin 5 mg - whole tablet MF, 1/2 tablet all other days - INR subtheraputic, continue to monitor and adjust dose as necessary; lovenox added until INR more therapeutic - Cards consulted; appreciate recs - EP consulted; appreciate recs - POD#4 s/p AICD/pacemaker placement - Coreg dose increased per cards; consider maxing dose 2. Tachy-lupe syndrome - EP consulted, appreciate recs - POD #4 s/p AICD/pacemaker placement - Pain controlled with tylenol # 3 - Keflex day 5 2. CHF - On lisinopril - s/p pacemaker and AICD on BB - Fluid restriction - HH diet - Echo showed EF 30-35% which is decline from a few years ago - Appreciate EP recs - Coreg started after pacemaker was placed; consider maxing dose 3. Diabetes mellitus Type II - HgA1c 14.5, up from 10 a few months ago - On metformin and glyburide - Moderate SSI - Added levemir 5 units BID - BG 235 this AM, consider increasing levemir by 2 units 4. Elevated troponins - Downtrended - Likely due to demand ischemia 5. HTN - Continue home medications 6. HLD - Continue home medications 7. Hyperthyroidism - Continue home medications Dispo: Stable. Will follow cards and EP recs. Consider maxing BB dose. <Zulema Mccormack - Last Filed: 11/27/17 08:25> Attending Addendum - Attending Addendum Date/Time: 01/13/18 [id number] I personally evaluated the patient and discussed the management with Dr. Granger. I agree with the History, Examination, Assessment and Plan documented above with any addition or exceptions noted below. Afib with RVR persists, adjusting meds to control. Tachy-lupe syndrome post- AICD placement. Uncontrolled DM improved, but will need further control with insulin and consistent f/u as OP. <Blake Santa - Last Filed: 01/13/18 15:26>
[2017-11-27] MEDS: Lisinopril 2.5 MG TAB PO SCH (08:35)
[2017-11-27] MEDS: Carvedilol 6.25 MG TAB PO SCH (08:36)
[2017-11-27] MEDS: metFORMIN 500 MG TAB PO SCH ×2 (08:36→17:10)
[2017-11-27] MEDS: glipiZIDE 5 MG TAB PO SCH ×2 (08:36→17:10)
[2017-11-27] MEDS: Methimazole 5 MG TAB PO SCH (08:37)
[2017-11-27] MEDS: Furosemide 100 MG/10 ML VIAL SLOW IVP SCH (09:25)
[2017-11-27] MEDS: Insulin Detemir 100 UNITS/ML 7 UNITS in Pre-Filled Syringe 1 EACH SC SCH ×2 (09:26→21:42)
[2017-11-27] MEDS ORDERED: Carvedilol 6.25 MG TAB PO SCH (09:36)
[2017-11-27] MEDS ORDERED: Carvedilol 25 MG TAB PO SCH (09:45)
[2017-11-27] MEDS: HumaLOG 300 UNITS/3 ML VIAL SC PRN ×3 (12:26→21:42)
--- NOTE | 2017-11-27 14:13 | PDOC.CTH ---
<Teresa Lindquist - Last Filed: 11/28/17 09:18> Cardiology Progress Note - Subjective EP Progress Note Patient doing well today. Reporting less pain at implant site. LUE ROM somewhat limited by pain/tenderness. No heart racing, palpitations, dizziness, passing out, or chest pain. Has been up walking multiple times today. - Objective Vital Signs Temp Pulse Resp BP BP BP Pulse Ox 11/27/17 11:15 97.9 F 60 18 109/69 94 L 11/27/17 08:36 112/74 11/27/17 08:35 74 112/74 11/27/17 07:36 97.3 F L 74 16 110/78 95 11/27/17 04:00 97.3 F L 65 17 108/66 96 Weight 192 lb 4.8 oz 11/26/17 11/27/17 11/28/17 06:59 06:59 06:59 Intake Total 789.7 1110 Output Total 2050 2200 Balance -1260.3 -1090 - Physical Examination General/Neuro: alert & oriented x3, NAD Neck: carotid US brisk Lungs: unlabored respirations Heart: other: (PAF/paced) Abdomen: no HSM, NT/ND Other PE findings: hematoma at left infraclavicular fossa implant site. size reducing. - Telemetry Telemetry Rhythm: PAF with demand pacing - Labs Result Diagrams: 11/26/17 11:55 11/26/17 11:55 Troponin/CKMB - Assessment/Plan 1. Atrial Fibrillation- rate control much improved. Off diltiazem drip. Coreg 25mg BID. Diltiazem CD 180mg QD. 2. Cardiomyopathy 3. Inclusion of ICD- hematoma at implant site reduced some from yesterday. Edges now well within yesterdays outline along inferior and lateral margin. Pressure dressing removed this AM. Area directly over ICD remains taut and swollen but pain is lessening. Ordering arm sling for patient comfort. 4. Oral anticoagulation- Warfarin. INR today 1.2 Request discharge follow up at [facility] office on [address] in 1 week for wound check <Toney Lester - Last Filed: 11/28/17 16:05> Cardiology Progress Note - Objective Vital Signs Temp Pulse Resp BP BP BP Pulse Ox 11/28/17 11:55 98.7 F 90 16 144/60 H 95 02/07/18 09:22 64 117/83 11/28/17 07:20 98.0 F 64 16 117/83 96 Weight 191 lb 6.4 oz 11/27/17 11/28/17 11/29/17 06:59 06:59 06:59 Intake Total 1110 1180 600 Output Total 2200 1250 450 Balance -1090 -70 150 - Labs Result Diagrams: 11/28/17 10:44 11/28/17 10:44 Troponin/CKMB CK-MB (CK-2) 1.2 ng/mL (0-6.6) 11/22/17 09:37 Troponin I 0.109 ng/mL (< 0.028) H 11/22/17 09:37 Attending Addendum - Attending Addendum I personally evaluated the patient and discussed the management withMS Blackburn. I agree with the History, Examination, Assessment and Plan documented above with any addition or exceptions noted below.
[2017-11-27] MEDS: Acetaminophen 325 MG TAB PO PRN (14:51)
[2017-11-27] MEDS: Furosemide 40 MG TAB PO SCH (14:51)
[2017-11-27] MEDS ORDERED: Warfarin Sodium 5 MG TAB PO SCH (17:00)
[2017-11-27] MEDS ORDERED: Warfarin Sodium 2.5 MG TAB PO SCH (17:00)
[2017-11-27] MEDS: Atorvastatin Calcium 10 MG TAB PO SCH (21:39)
[2017-11-27] MEDS: Carvedilol 25 MG TAB PO SCH (21:39)
[2017-11-28] MEDS: Cephalexin 250 MG CAP PO SCH ×2 (05:25→12:00)
[2017-11-28 05:35] LABS: INR-International Normal Ratio 1.4; Prothrombin Time 17.7 SEC (12.0-14.7)
[2017-11-28] MEDS ORDERED: Insulin Detemir 100 UNITS/ML 10 UNITS in Pre-Filled Syringe 1 EACH SC SCH (06:39)
--- NOTE | 2017-11-28 06:45 | PDOC.FM ---
- Subjective Subjective: Patient doing well this AM. No significant overnight events. No complaints of chest pain or shortness of breath. Patient has been ambulating without getting short of breath or dizzy. He is ready to go home. - Objective MAR Reviewed: Yes Vital Signs & Weight: Vital Signs (12 hours) Temp Pulse Resp BP BP Pulse Ox 11/28/17 04:00 97.1 F L 67 16 112/78 98 11/27/17 20:00 98 F 71 18 127/67 94 L Weight Weight 86.818 kg I&O: 11/26/17 11/27/17 11/28/17 06:59 06:59 06:59 Intake Total 789.7 1110 700 Output Total 2050 2200 650 Balance -1260.3 -1090 50 Result Diagrams: 11/26/17 11:55 11/26/17 11:55 EKG Reviewed by me: Yes Radiology Reviewed by me: Yes <Zulema Mccormack - Last Filed: 11/28/17 09:08> - Objective Vital Signs & Weight: Vital Signs (12 hours) Temp Pulse Resp BP BP Pulse Ox 11/28/17 09:22 64 117/83 11/28/17 07:20 98.0 F 64 16 117/83 96 11/28/17 04:00 97.1 F L 67 16 112/78 98 Weight Weight 86.818 kg I&O: 11/27/17 11/28/17 11/29/17 06:59 06:59 06:59 Intake Total 1110 1180 120 Output Total 2200 1250 Balance -1090 -70 120 Result Diagrams: 11/28/17 10:44 11/26/17 11:55 <Blake Santa A - Last Filed: 11/28/17 11:16> Phys Exam - Physical Examination Constitutional: NAD HEENT: moist MMs Neck: supple Respiratory: no wheezing, clear to auscultation bilateral Cardiovascular: RRR A-fib Gastrointestinal: soft, positive bowel sounds Musculoskeletal: no edema, pulses present Neurological: non-focal, moves all 4 limbs Psychiatric: A&O x 3 Skin: no rash, cap refill <2 seconds <Zulema Mccormack - Last Filed: 11/28/17 09:08> Dx/Plan (1) Atrial fibrillation with RVR Code(s): I48.91 - UNSPECIFIED ATRIAL FIBRILLATION Status: Acute (2) Diabetes mellitus type II, uncontrolled Code(s): E11.65 - TYPE 2 DIABETES MELLITUS WITH HYPERGLYCEMIA Status: Chronic QualifierTitle: Diabetes mellitus complication status: without complication Diabetes mellitus usp insulin use: without dedicated 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 Qualified Code(s): E11.65 - Type 2 diabetes mellitus with hyperglycemia (3) CHF (congestive heart failure) Code(s): I50.9 - HEART FAILURE, UNSPECIFIED Status: Chronic QualifierTitle: Congestive heart failure type: systolic Congestive heart failure chronicity: acute on chronic Qualified Code(s): I50.23 - Acute on chronic systolic (congestive) heart failure (4) Hyperlipidemia Code(s): E78.5 - HYPERLIPIDEMIA, UNSPECIFIED Status: Chronic QualifierTitle: Hyperlipidemia type: unspecified Qualified Code(s): E78.5 - Hyperlipidemia, unspecified (5) Hypertension Code(s): I10 - ESSENTIAL (PRIMARY) HYPERTENSION Status: Chronic QualifierTitle: Hypertension type: essential hypertension Qualified Code( s): I10 - Essential (primary) hypertension - Plan Plan: 1. A-fib with RVR - Dilt drip d/c'd yesterday - Cards added oral dilt 180 mg daily - Patient on anticoagulation; warfarin 5 mg - whole tablet MF, 1/2 tablet all other days; increase to 5 mg/day until therapeutic - INR subtheraputic, continue to monitor and adjust dose as necessary; lovenox d /c'd due to hematoma at surgery site - Cards consulted; appreciate recs - EP consulted; appreciate recs - POD#5 s/p AICD/pacemaker placement - Spoke with EP yesterday; recommended increasing coreg to 25 mg BID and taking of dilt drip 2. Tachy-lupe syndrome - EP consulted, appreciate recs - POD #5 s/p AICD/pacemaker placement - Pain controlled with tylenol # 3 - Keflex day 6 2. CHF - On lisinopril - s/p pacemaker and AICD on BB - Fluid restriction - HH diet - Echo showed EF 30-35% which is decline from a few years ago - Appreciate EP recs - Coreg started after pacemaker was placed; increased to 25 mg BID 3. Diabetes mellitus Type II - HgA1c 14.5, up from 10 a few months ago - On metformin and glyburide - Moderate SSI - BG 244 this AM, increased levemir to 10 U BID 4. Elevated troponins - Downtrended - Likely due to demand ischemia 5. HTN - Continue home medications 6. HLD - Continue home medications 7. Hyperthyroidism - Continue home medications Dispo: Stable. Consider d/c today if stable on oral medications. <Zulema Mccormack - Last Filed: 11/28/17 09:08> Attending Addendum - Attending Addendum I personally evaluated the patient and discussed the management with Dr. Mccormack I agree with the History, Examination, Assessment and Plan documented above with any addition or exceptions noted below. EP agrees with plan for dc today. HR in 60s-70s, no higher than low 100s o/n on tele. INR is still subtherapeutic but was on admission. We have increased dose of coumadin and pt to follow up with coumadin clinic for INR monitoring, is rising appropriately. Discussed uncontrolled DM II, to be discharged home with insulin. <Blake Santa - Last Filed: 11/28/17 11:16>
[2017-11-28] MEDS: metFORMIN 500 MG TAB PO SCH (07:26)
[2017-11-28] MEDS: glipiZIDE 5 MG TAB PO SCH (07:26)
[2017-11-28] MEDS: Methimazole 5 MG TAB PO SCH (07:26)
[2017-11-28] MEDS: HumaLOG 300 UNITS/3 ML VIAL SC PRN ×2 (09:15→13:10)
--- NOTE | 2017-11-28 09:21 | PDOC.CTH ---
Cardiology Progress Note - Subjective Ep progress note Mr Franco has done well overnight. He is up walking around and being more mobile. His pain is lessening at his implant site. No dizziness, heart racing, or palpitations. No cardiac complaints - Objective Vital Signs Temp Pulse Resp BP Pulse Ox 11/28/17 07:20 98.0 F 64 16 117/83 96 11/28/17 04:00 97.1 F L 67 16 112/78 98 Weight 191 lb 6.4 oz 11/27/17 11/28/17 11/29/17 06:59 06:59 06:59 Intake Total 1110 1180 Output Total 2200 1250 Balance -1090 -70 - Physical Examination General/Neuro: alert & oriented x3, NAD Neck: carotid US brisk, no JVD present Lungs: CTA, unlabored respirations Heart: PMI normal Abdomen: no HSM, NT/ND - Telemetry Telemetry Rhythm: AFib - Labs Result Diagrams: 11/26/17 11:55 11/26/17 11:55 Troponin/CKMB - Assessment/Plan 1. Atrial fibrillation- rates remain well controlled with current medications. 2. Cardiomyopathy Systolic heart failure- stable, inclusion of ICD 3. [employer] ICD- hematoma at implant site. Size has not increased from yesterday and is better controlled now that lovenox has been discontinued. Additional pressure dressing may be needed if hematoma size increases, but it appears stable at this point. 4. Continue oral anticoagulation with warfarin. Ok for discharge from EP. Outpatient follow up in 1 week at [facility]
[2017-11-28] MEDS: Lisinopril 2.5 MG TAB PO SCH (09:22)
[2017-11-28] MEDS: Furosemide 40 MG TAB PO SCH ×2 (09:23→13:14)
[2017-11-28] MEDS: Carvedilol 25 MG TAB PO SCH (09:23)
[2017-11-28 11:03] LABS: Hemoglobin 14.1 g/dL (14.0-18.0); Platelet Count 194 thou/uL (130-400)
[2017-11-28 12:00] VITALS: BP 144/60; TEMP 98.7
--- NOTE | 2017-11-29 11:56 | DIS-2 ---
DATE OF ADMISSION: 11/21/2017 DATE OF DISCHARGE: 11/28/2017 ADMITTING ATTENDING: Dr. Deonna Devi DISCHARGE ATTENDING: Dr. Blake Santa RESIDENT: Dr. Zulema Mccormack PROCEDURES: 1. Chest x-ray: Cardiomegaly. 2. EKG: Atrial fibrillation with rapid ventricular response. 3. Echocardiogram shows an ejection fraction of 30-35% with atrial fibrillation during study and severely dilated left atrium. There is a moderately enlarged right atrium. Moderate mitral regurgitation. Trace aortic valve regurgitation. Moderate tricuspid regurgitation. 4. Fluoroscopic guidance, implantable cardioverter defibrillator. Right atrial lead implant, right ventricular ICD lead implant, electrophysiologic testing of ICD and leads, programming of anti-tachycardia pacemaker. CONSULTATIONS: 1. Cardiology, Dr. Loo and Dr. Delacruz. 2. Electrophysiology, Dr. Lester 3. Cardiovascular Team. PRIMARY DISCHARGE DIAGNOSES: 1. Atrial fibrillation with rapid ventricular rate, resolved. 2. Tachybrady syndrome. 3. Cardiomyopathy, systolic heart failure, status post ICD placement. 4. Systolic congestive heart failure with ejection fraction estimated at 30-35% . SECONDARY DIAGNOSES: 1. Diabetes mellitus type 2, uncontrolled. 2. Hyperlipidemia. 3. Hypertension. 4. Elevated troponins. DISCHARGE MEDICATIONS: 1. Tylenol #3, 300/300 mg oral every 4 hours as needed. 2. Carvedilol 25 mg oral twice daily. 3. Cephalexin 500 mg oral q.6h. for an additional 4 days. 4. Diltiazem 180 mg oral daily. 5. Glipizide 5 mg oral twice daily before meals. 6. Insulin Detemir 10 units subcutaneously twice daily. 7. Lisinopril 2.5 mg oral daily. 8. Tramadol 50 mg oral q.4h. as needed. 9. Furosemide 40 mg oral daily. 10. Simvastatin 20 mg oral at bedtime. 11. Methimazole 5 mg oral daily. 12. Pantoprazole 40 mg oral daily. 13. Metformin 500 mg oral twice daily. 14. Warfarin 50 mg oral daily. Lisinopril was changed from 10 mg oral daily to 2.5 mg due to low blood pressure. Diltiazem was changed from 240 mg to 180 mg daily. HISTORY OF PRESENT ILLNESS AND HOSPITAL COURSE: This is a 57-year-old male who presented with a 1-day history of shortness of breath. He actually went to see his primary care physician at [facility] for routine followup appointment and was found to be in atrial fibrillation with rapid ventricular response. At that time, he was sent to the emergency department for further evaluation. The patient denied any chest pain, nausea, vomiting, diarrhea, lightheadedness, falls, diaphoresis or palpitations at that time. He stated that he overall felt very well. He had been trying to lose a little bit of weight for his diabetes, but he has only been successful in losing roughly 5 pounds. The patient stated that he has not missed any medication during this time and is compliant with all of his medical treatment. He had no other complaints and in the ER, he was started on a diltiazem drip at 5 mg and given digoxin 0.5 mg, magnesium sulfate, and aspirin 324 mg. He was also started on normal saline at 75 mL per hour. The patient transitioned rather quickly from atrial fibrillation with RVR to a rate in the 40s or 50s at which time the drip was stopped. The patient was then dropping down into the 30s, followed by several seconds of pause. Cardiology was consulted as there was concern for tachybrady syndrome. Dr. Loo evaluated the patient and consulted Dr. Lester, the mattress inspector, as he had a class 1 indication for AICD with his left ventricular dysfunction. The patient was continued on his medications for his heart failure to include the beta brigid, COLTON inhibitor and furosemide. Dr. Lester evaluated the patient and deemed him a good candidate for AICD. Thus the patient had an AICD placed on 11/21/2017. Aside from the hematoma at the site of implantation the patient did not experience any complications. The patient was on Coumadin prior to admission due to his atrial fibrillation. He was not in the therapeutic range and was noted to have an INR of 1.6. Throughout the hospital stay, the INR gradually started to increase after it initially had dropped secondary to holding it for the procedure. Upon discharge INR was 1.4. The patient's dose of warfarin was increased to 5 mg 5 days per week as opposed 2 days per week with 2.5 mg on the remaining days. The patient was informed that he would need to go to his Coumadin Clinic to have his INR checked to get it into the therapeutic level. The patient was placed on Lovenox for a period of time since his INR was not therapeutic; however, this was stopped as he was developing rather severe hematoma at the site of the ICD implantation. Of note, patient did return back into atrial fibrillation with RVR the night after implantation, he was placed on a diltiazem drip and remained on that drip for approximately 2-3 days. Other oral medications were being added to help control his heart rate. Eventually, the patient was taken off the drip and transitioned to only oral medications at which time his carvedilol was maxed out at 25 mg b.i.d. Additionally, he continued to take the diltiazem orally at 180 mg. This patient was monitored on these oral medications and did well. His heart rate remained within normal range. The patient was noted to be an uncontrolled diabetic. Hemoglobin A1c was checked and noted to be 14.5. The patient was only taking glipizide and metformin. He had a hemoglobin A1c checked less than 3 months ago and it was 10 at that time. Due to the severity of his diabetes, it was advised that the patient be started on insulin, thus Levemir was started and titrated to 10 units b.i.d. The patient was informed that as he is insulin naive it would be better to titrate this slowly. He was advised to follow with his PCP to ensure that the blood sugars were remaining within a reasonable range. Diabetes education was performed via the nurses and the patient was shown how to use his insulin. DISPOSITION: Stable. DISCHARGE INSTRUCTIONS: 1. Location: Home. 2. Activity: Orthopedic limitations, no heavy lifting, particularly with left arm until cleared by EP. 3. Diet: Coumadin prudent diet, diabetic diet, fluid restriction diet, heart healthy diet, low sodium diet. 4. Followup: The patient is to follow up with Dr. Loo in 7-10 days. Initially, the patient is to follow up with Dr. Lester in 7 days and he is to follow up with Cardiac Rehab on 12/06/2017 at 2:00 p.m. Finally, the patient is to follow up with his primary care physician at [facility] within 7 days of discharge to ensure that he is being adequately followed for his atrial fibrillation and uncontrolled diabetes. This was explained with the patient and patient's at bedside. They understood the plan and were agreeable. MADONNA
--- NOTE | 2017-12-03 07:35 | PRG ---
DATE OF SERVICE: 11/27/2017 SUBJECTIVE: Mr. Franco, from a heart rate standpoint, is doing much better. I added Cardizem at 180 m g x1 dose. His heart rate is in the 60s-70s. He states he feels better. He did develop a hematoma noted to the ICD site yesterday. Compression was placed. It appears improved. His INR is subtherap eutic at 1.2. OBJECTIVE: VITAL SIGNS: Blood pressure 112/72, pulse 74, temperature afebrile. LUNGS: Clear to auscultation. CARDIAC: Irregularly irregular. ABDOMEN: Soft, nontender, nondistended. EXTREMITIES: No edema. PERTINENT LABORATORY DATA: Hemoglobin 16.6, hematocrit 49.7, creatinine 1.08. IMPRESSION: 1. Atrial fibrillation with rapid ventricular response. 2. Nonischemic cardiomyopathy. 3. Status post implantable cardioverter defibrillator placement. RECOMMENDATIONS: His heart rate appears to be much better controlled even with little ambulation. W e would continue current treatment. I would like EP assess the ICD site and discuss timing of contin uing Coumadin. His INR is 1.2, and I would suspect with continuing Coumadin, this may have progresse d. Otherwise, from my standpoint, I have no further recommendations. I did recommend ambulation. H e seems weak.
== END 2017-11-28 14:55 | disposition home or self-care (01) | DRG 226 ==
LOC: ERS 18:53 → 2NO 22:00
PROVIDERS: ADMIT Family Medicine; ATTEND Family Medicine
PROC: 0JH609Z Insertion of Cardiac Resynchronization Defibrillator Pulse Generator into Chest Subcutaneous Tissue and Fascia, Open Approach (ICD-10-PCS; principal; 2017-11-23)
PROC: 02HK3KZ Insertion of Defibrillator Lead into Right Ventricle, Percutaneous Approach (ICD-10-PCS; 2017-11-23)
PROC: 02H63KZ Insertion of Defibrillator Lead into Right Atrium, Percutaneous Approach (ICD-10-PCS; 2017-11-23)
DX: I48.2 Chronic atrial fibrillation (principal); I50.23 Acute on chronic systolic (congestive) heart failure; N17.9 Acute kidney failure, unspecified; I24.8 Other forms of acute ischemic heart disease; L76.32 Postprocedural hematoma of skin and subcutaneous tissue following other procedure; E11.65 Type 2 diabetes mellitus with hyperglycemia; I08.1 Rheumatic disorders of both mitral and tricuspid valves; I49.5 Sick sinus syndrome; I42.0 Dilated cardiomyopathy; Z79.01 Long term (current) use of anticoagulants; E78.5 Hyperlipidemia, unspecified; E05.90 Thyrotoxicosis, unspecified without thyrotoxic crisis or storm; J44.9 Chronic obstructive pulmonary disease, unspecified; Z87.891 Personal history of nicotine dependence; I11.0 Hypertensive heart disease with heart failure
CPT/HCPCS: 33249; 36415; 36416; 71045; 75820; 80048; 80053; 81003; 82553; 82565; 83036; 83690; 83735; 83880; 84100; 84439; 84443; 84481; 84484; 85014; 85018; 85025; 85049; 85379; 85610; 85730; 93005; 93306; 93798; 94760; 96365; 96367; 96375; A4216; C1721; C1777; C1898; J1160; J1650; J1815; J1940; J2250; J2405; J3010; J3475; J3490; J7050

== ENCOUNTER 2017-12-10 07:22 | Emergency (ER) | payer OTHER, SELFPAY ==
[2017-12-10 09:27] LABS: #Basophils 0.1 thou/uL (0.0-0.2); #Eosinphils 0.1 thou/uL (0.0-0.7); #Lymphocytes 1.8 thou/uL (1.20-3.40); #Monocytes 0.5 thou/uL (0.11-0.59); #Neutrophils 5.1 thou/uL (1.40-6.50); %Basophils 0.9 % (0.0-1.0); %Eosinophils 1.9 % (0.0-10.0); %Lymphocytes 23.7 % (21.0-51.0); %Monocytes 6.8 % (0.0-10.0); %Neutrophils 66.7 % (42.0-75.0); Hemoglobin 14.8 g/dL (14.0-18.0); Mean Corpuscular HGB CONC 33.1 g/dL (32.0-36.0); Mean Corpuscular Hemoglobin 30.7 pg (27.0-31.0); Mean Corpuscular Volume 92.7 fl (80.0-94.0); Mean Platelet Volume 7.1 fL (7.4-10.4); Platelet Count 221 thou/uL (130-400); RBC Distribution Width 13.3 % (11.5-14.5); Red Blood Cell (RBC) Count 4.81 mill/uL (4.70-6.10); White Blood Cell (WBC) Count 7.6 thou/uL (4.8-10.8)
[2017-12-10 09:38] LABS: INR-International Normal Ratio 1.7; Prothrombin Time 20.3 SEC (12.0-14.7)
[2017-12-10 09:44] LABS: ALT (SGPT) 14 U/L (8-55); AST (SGOT) 13 U/L (5-34); Albumin 3.7 g/dL (3.5-5.0); Alkaline Phosphatase 101 U/L (40-150); Anion Gap 11 mmol/L (10-20); BUN (Urea Nitrogen) 18 mg/dL (8.4-25.7); Bilirubin, Total 0.5 mg/dL (0.2-1.2); Calc. Creatinine Clearance 0 mL/min (70-130); Calcium 8.8 mg/dL (7.8-10.44); Carbon Dioxide 24 mmol/L (22-29); Chloride 106 mmol/L (98-107); Estimated GFR-MDRD 75; Globulin 3.6 g/dL (2.4-3.5); Glucose 290 mg/dL (70-105); Potassium 4.6 mmol/L (3.5-5.1); Protein, Total 7.3 g/dL (6.0-8.3); Sodium 136 mmol/L (136-145)
--- NOTE | 2017-12-10 09:46 | RAD ---
PORTABLE CHEST 1 VIEW: DATE: 12/10/17. TIME: 9:11 a.m. HISTORY: Pacemaker placement, bleeding from the site. FINDINGS: Comparison is made to the exam of 11/24/17. Left side pacing device remains in place. The heart size is normal. The lungs are expanded without focal areas of consolidation, pneumothorax, or pleural effusions. IMPRESSION: No acute process. POS: ERIN
== END 2017-12-10 10:42 | disposition home or self-care (01) ==
LOC: ERS 07:22
DX: I97.618 Postprocedural hemorrhage of a circulatory system organ or structure following other circulatory system procedure (principal); E11.9 Type 2 diabetes mellitus without complications; E78.5 Hyperlipidemia, unspecified; I48.91 Unspecified atrial fibrillation; I11.0 Hypertensive heart disease with heart failure; I50.9 Heart failure, unspecified; J44.9 Chronic obstructive pulmonary disease, unspecified; Z87.891 Personal history of nicotine dependence; Z79.84 Long term (current) use of oral hypoglycemic drugs; Z79.899 Other long term (current) drug therapy
CPT/HCPCS: 36415; 71045; 80053; 85025; 85610; 85730; 93005

== ENCOUNTER 2024-06-11 08:19 | Outpatient (CLI) | payer OTHER, SELFPAY ==
[2024-06-11 10:07] LABS: #Basophils 0.04 10x3/uL (0.0-0.2); %Basophils 0.5 % (0.0-1.0); %Lymphocytes 26.9 % (21.0-51.0); %Monocytes 6.5 % (0.0-10.0); %Neutrophils 63.8 % (42.0-75.0); Hemoglobin 12.7 g/dL (14.0-18.0); Mean Corpuscular HGB CONC 31.8 g/dL (32.0-36.0); Mean Corpuscular Hemoglobin 27.3 pg (27.0-31.0); Mean Corpuscular Volume 85.8 fL (78.0-98.0); Platelet Count 223 10x3/uL (130-400); RBC Distribution Width 16.3 % (11.5-14.5); Red Blood Cell (RBC) Count 4.66 mill/uL (4.70-6.10)
[2024-06-11 10:20] LABS: Anion Gap 11 mmol/L (10-20); BUN (Urea Nitrogen) 17 mg/dL (8.4-25.7); Calc. Creatinine Clearance 0 mL/min (70-130); Calcium 8.8 mg/dL (7.8-10.44); Carbon Dioxide 25 mmol/L (23-31); Chloride 107 mmol/L (98-107); Estimated GFR 95; Glucose 243 mg/dL (80-115); Potassium 4.6 mmol/L (3.5-5.1); Sodium 138 mmol/L (136-145)
[2024-06-11 10:21] LABS: INR-International Normal Ratio 1.1
[2024-06-11 10:22] LABS: PTT 29.2 sec (22.9-36.1)
== END 2024-06-11 08:20 | disposition home or self-care (01) ==
LOC: LABBT 08:19
PROVIDERS: ATTEND Internal Medicine Cardiovascular Disease
DX: Z01.812 Encounter for preprocedural laboratory examination (principal); I50.9 Heart failure, unspecified; I48.19 Other persistent atrial fibrillation
CPT/HCPCS: 80048; 85025; 85610; 85730